=== PATIENT | female | born 1965 | race Caucasian/White ===

== ENCOUNTER 2025-01-21 02:03 | Emergency (ER) | payer OTHER ==
--- OUTSIDE RECORDS SUMMARY | 2025-01-21 02:07 | XMS REPORT | Continuity of Care Document ---
Author Name Unknown Address [address] [place] [address] [facility] [place] Address [address] [facility] [place] [address] Care Team Providers Care Supply Chain Buyer Name Role Phone [facility], [facility] Care Physician Unavailable EDWARD LANZA Attending Clinician Unavailab SANDY Steinberg Attending Clinician UnavailSANDY Brush Attending Clinician UnavailSandy Brush DO Attending Clinician [phone] VERENICE DANIELS Attending Clinician Unavailable Verenice Daniels MD Attending Clinician [phone] KIRIT RECINOS Attending Clinician Unavailable Kirit Recinos DO Attending Clinician [phone] Anand Jarrell MD Attending Clinician [phone] ANAND JARRELL Attending Clinician Unavailable VERENICE DANIELS Admitting Clinician Unavailable Payers Payer Name Policy Type Policy Number Effective Date Expirati on Date Source [facility] LORENZA SOTO COPAY FOCUS 9 [id number] 2024 00:00:00 [facility] [id number] 2024 00:00:00 [employer] [id number] 2023 00:00:00 STEPHANI BISWAS FROM [facility] [id number] 2022 00:00:00 Problems Condition Name Condition Details Condition Category Status Onset Date Resolution Date Last Treatment Date Treating Clinician Comments Source Skin cancer screening Skin cancer screening Disease Active 04-19 00:00: 00 Sandra Velásqueza l Allergies, Adverse Reactions, Alerts Allergy Name Allergy Type Status Severity Reaction(s) Onset Date Inactive Date Treating Clinician Comments Source NO KNOWN ALLERGIE S Drug Class Active [facility] Social History Social Habit Start Date Stop Date Quantity Comments Source Sexual orientation Qamar lentz Seyahairashalonda - External Tobacco use and exposure 2024-04-19 00:00:00 2024-04-19 00:00:00 Smokeless tobacco non-user Sandra Chasshalonda - External History of Social function 2024-04-19 00:00:00 2024-04-19 00:00:00 Sandra Delvalle - External Exposure to SARS-CoV-2 (event) 2022-12-23 00:00:00 2023-01-02 09:10:[address] [facility] Sex assigned at 1965 00:00:00 1965 00:00:00 Sandra Delvalle - External Smoking Status Start Date Stop Date Source Tobacco smoking consumption unknown [facility] Never smoked tobacco Sandra Laurentyahairashalonda - External Medications Ordered Medication Name Filled Medication Name Start Date Stop Date Current Medication? Ordering Clinician Indication Dosage Frequency Signature (SIG) Comments Components Source cefpodoxime 100 mg tablet 05-29 00:00: 00 06-06 04:59 :00 No [id number] 100mg Take 1 tablet by mouth in the morning and 1 tablet in the evening. Do all this for 7 days. [facility] Escitalopra m Oxalate 10 MG oral Tablet 04-19 00:00: 00 Yes [id number] 10mg QD Take 1 tablet (10 mg total) by mouth daily. Sandra Velásqueza l magnesium sulfate in D5W 1 gram/100 mL RTU IV Piggyback 1 g 03-16 18:45: 00 03-16 19:14 :00 No 1g 1 g, IV Piggyback, ONCE, 1 dose, On Tue03/16/24 at 1345, Administer over 60 Minutes, 100 mL [facility] NaCl 0.9% (NS) bolus infusion 1,000 mL 03-16 18:45: 00 03-16 19:14 :00 No 1000mL at 999 mL/hr, 1,000 mL, IV Infusion, ONCE, 1 dose, On Tue03/16/24 at 1345, STAT [facility] ketorolac (TORADOL) injection 30 mg 03-16 18:30: 00 03-16 18:19 :00 No 30mg 30 mg, Slow IV Push, ONCE, 1 dose, On Tue03/16/24 at 1330, KORY [facility] metoclopram tammy HCl (REGLAN) injection 10 mg 03-16 16:30: 00 03-16 16:26 :00 No 10mg 10 mg, Slow IV Push, ONCE, 1 dose, On Tue03/16/24 at 1130, KORY [facility] butalbital- acetaminoph en-caff 50-325-40 mg tablet 03-16 00:00: 00 Yes [id number] 1{tbl} Take 1 tablet by mouth every 4 (four) hours as needed for Pain (scale 4-6). [facility] metoclopram tammy HCl 10 mg tablet 03-16 00:00: 00 05-29 00:00 :00 No [id number] 10mg Take 1 tablet by mouth every 6 (six) hours. [facility] naproxen 500 mg tablet 03-16 00:00: 00 03-27 04:59 :00 No [id number] 500mg Take 1 tablet by mouth in the morning and 1 tablet in the evening. Take with meals. Do all this for 10 days. [facility] metoclopram tammy HCl (REGLAN) tablet 10 mg 10-29 13:30: 00 Yes 10mg 10 mg, Oral, AC, First dose on Tue10/29/23 at 0730, Until Discontinu ed, Routine [facility] diphenhydrA MINE (BENADRYL) tablet 25 mg 10-29 00:00: 00 10-29 00:01 :00 No 25mg 25 mg, Oral, ONCE, 1 dose, On Tue10/28/23 at 1800, KORY [facility] ondansetron (ZOFRAN-ODT ) disintegrat ing tablet 8 mg 10-28 22:30: 00 10-28 22:37 :00 No 8mg 8 mg, Oral, ONCE, 1 dose, On Tue10/28/23 at 1630, Routine [facility] ondansetron 4 mg disintegrat ing tablet 10-28 00:00: 00 05-29 00:00 :00 No [id number] 4mg Take 1 tablet by mouth every 8 (eight) hours as needed for Nausea and Vomiting (N/V). [facility] cephALEXin (KEFLEX) 500 mg capsule 10-28 00:00: 00 11-05 05:59 :00 No [id number] 500mg Take 1 capsule by mouth in the morning and 1 capsule at noon and 1 capsule in the evening. Do all this for 7 days. [facility] ketorolac (TORADOL) injection 30 mg 01-02 15:00: 00 01-02 14:35 :00 No 30mg 30 mg, Slow IV Push, ONCE, 1 dose, On Tue01/02/23 at 1000, Routine [facility] NaCl 0.9% (NS) bolus infusion 1,000 mL 01-02 15:00: 00 01-02 15:36 :00 No 1000mL at 999 mL/hr, 1,000 mL, IV Infusion, ONCE, 1 dose, On Tue01/02/23 at 1000, KORY [facility] diphenhydrA MINE (BENADRYL) injection 25 mg 01-02 14:30: 00 01-02 14:36 :00 No 25mg 25 mg, Slow IV Push, ONCE, 1 dose, On Tue01/02/23 at 0930, STAT [facility] metoclopram tammy HCl (REGLAN) injection 10 mg 01-02 14:30: 00 01-02 14:34 :00 No 10mg 10 mg, Slow IV Push, ONCE, 1 dose, On Tue01/02/23 at 0930, KORY [facility] ibuprofen (IBU) tablet 800 mg 12-07 05:45: 00 12-07 05:56 :00 No 800mg 800 mg, Oral, ONCE, 1 dose, On 12/06/22 at 2345, [facility] ondansetron (ZOFRAN-ODT ) disintegrat ing tablet 4 mg 12-07 05:45: 00 12-07 05:56 :00 No 4mg 4 mg, Oral, ONCE, 1 dose, On 12/06/22 at 2345, [facility] benzonatate 200 mg capsule 12-07 00:00: 00 05-29 00:00 :00 No [id number] 200mg Take 1 capsule by mouth 3 (three) times daily as needed for Cough. [facility] ibuprofen 800 mg tablet 12-07 00:00: 00 05-29 00:00 :00 No [id number] 800mg Take 1 tablet by mouth every 8 (eight) hours as needed for Pain (scale 4-6). [facility] Vital Signs Vital Name Observation Time Observation Value Comments S ource Systolic blood pressure 2024-05-29 12:59:00 118 mm[Hg] [facility] Diastolic blood pressure 2024-05-29 12:59:00 79 mm[Hg] [facility] Heart rate 2024-05-29 12:59:00 75 /min [facility] Body temperature 2024-05-29 12:59:[address] [facility] Respiratory rate 2024-05-29 12:59:00 16 /min [facility] Body height 2024-05-29 12:59:00 157.5 cm [facility] Body weight 2024-05-29 12:59:00 72.122 kg [facility] BMI 2024-05-29 12:59:00 29.08 kg/m2 [facility] Oxygen saturation in Arterial blood by Pulse oximetry 2024-05-29 12:59:00 93 /min [facility] Systolic blood pressure 2024-04-19 14:57:00 118 mm[Hg] Sandra Dohertyo ld - External Diastolic blood pressure 2024-04-19 14:57:00 64 mm[Hg] Sandra Dohertyo ld - External Heart rate 2024-04-19 14:57:00 86 /min Ehsan farmer Seybold - External Body temperature 2024-04-19 14:57:00 36.94 Jamee Sandra Laurentybold - External Respiratory rate 2024-04-19 14:57:00 18 /min Sandra Dohertyold - External Body height 2024-04-19 14:57:00 157.5 cm Melyssa davis Seybold - External Body weight 2024-04-19 14:57:00 73.143 kg Melyssa davis Seybold - External BMI 2024-04-19 14:57:00 29.49 kg/m2 Melyssa davis Seybshalonda - External Oxygen saturation in Arterial blood by Pulse oximetry 2024-04-19 14:57:00 97 /min Sandra Hinkle ld - External Systolic blood pressure 2024-03-16 19:02:00 123 mm[Hg] [facility] Diastolic blood pressure 2024-03-16 19:02:00 64 mm[Hg] [facility] Respiratory rate 2024-03-16 19:02:00 13 /min [facility] Heart rate 2024-03-16 17:00:00 81 /min [facility] Oxygen saturation in Arterial blood by Pulse oximetry 2024-03-16 17:00:00 93 /min [facility] Body temperature 2024-03-16 16:05:[address] [facility] Body height 2024-03-16 16:05:00 157.5 cm [facility] Body weight 2024-03-16 16:05:00 72.576 kg [facility] BMI 2024-03-16 16:05:00 29.26 kg/m2 [facility] Systolic blood pressure 2023-10-29 00:05:00 153 mm[Hg] [facility] Diastolic blood pressure 2023-10-29 00:05:00 74 mm[Hg] [facility] Heart rate 2023-10-29 00:05:00 80 /min [facility] Body temperature 2023-10-29 00:05:[address] [facility] Respiratory rate 2023-10-29 00:05:00 18 /min [facility] Oxygen saturation in Arterial blood by Pulse oximetry 2023-10-29 00:05:00 97 /min [facility] Body height 2023-10-28 21:37:00 157.5 cm [facility] Body weight 2023-10-28 21:37:00 69.854 kg [facility] BMI 2023-10-28 21:37:00 28.17 kg/m2 [facility] Systolic blood pressure 2023-01-02 15:36:36 122 mm[Hg] [facility] Diastolic blood pressure 2023-01-02 15:36:36 58 mm[Hg] [facility] Heart rate 2023-01-02 15:36:36 80 /min [facility] Oxygen saturation in Arterial blood by Pulse oximetry 2023-01-02 15:36:36 95 /min [facility] Respiratory rate 2023-01-02 15:00:00 16 /min [facility] Body temperature 2023-01-02 14:11:[address] [facility] Body height 2023-01-02 14:11:00 157.5 cm [facility] Body weight 2023-01-02 14:11:00 69.854 kg [facility] BMI 2023-01-02 14:11:00 28.17 kg/m2 [facility] Systolic blood pressure 2022-12-07 04:30:00 150 mm[Hg] [facility] Diastolic blood pressure 2022-12-07 04:30:00 82 mm[Hg] [facility] Heart rate 2022-12-07 04:30:00 107 /min [facility] Body temperature 2022-12-07 04:30:[address] [facility] Respiratory rate 2022-12-07 04:30:00 18 /min [facility] Body height 2022-12-07 04:30:00 157.5 cm [facility] Body weight 2022-12-07 04:30:00 69.854 kg [facility] BMI 2022-12-07 04:30:00 28.17 kg/m2 [facility] Oxygen saturation in Arterial blood by Pulse oximetry 2022-12-07 04:30:00 96 /min [facility] Procedures Procedure Date / Time Performed Performing Clinician Source URINALYSIS 2024-05-29 13:09:00 [facility] 2024-03-16 17:07:[address] [facility] URINALYSIS 2024-03-16 16:42:00 Verenice Daniels [facility] URINE DRUG (IMMUNOASSAY) - COMPREHENSIVE DRUG SCREEN W/O REFLEX 2024-03-16 16:42:[address] [facility] COMP. METABOLIC PANEL ([id number]) 2024-03-16 16:25:[address] [facility] CBC WITH DIFF 2024-03-16 16:25:00 Verenice Daniels [facility] URINALYSIS 2023-10-28 22:38:00 Kirit Recinos [facility] RAPID INFLUENZA A/B 2023-10-28 22:38:[address] [facility] COVID-19 (ID NOW RAPID TESTING) 2023-10-28 22:38:[address] [facility] ASSIGNMENT OF BENEFITS 2023-10-28 22:17:30 Docto r Unassigned, [facility] CONSENT/REFUSAL FOR DIAGNOSIS AND TREATMENT 2023-10-28 21:21:29 Doctor Unassigned, [facility] COMP. METABOLIC PANEL ([id number]) 2023-01-02 14:30:[address] [facility] CBC WITH DIFF 2023-01-02 14:30:00 [facility] RAPID INFLUENZA A/B 2023-01-02 14:30:[address] [facility] COVID-19 (ID NOW RAPID TESTING) 2023-01-02 14:30:[address] [facility] NOTICE OF PRIVACY PRACTICES 2023-01-02 14:09:30 Doctor Unassigned, [facility] RAPID INFLUENZA A/B 2022-12-07 05:56:[address] [facility] COVID-19 (ID NOW RAPID TESTING) 2022-12-07 05:56:[address] [facility] NOTICE OF PRIVACY PRACTICES 2022-12-07 04:13:32 Doctor Unassigned, [facility] NOTICE OF PRIVACY PRACTICES 2022-12-07 04:13:13 Doctor Unassigned, [facility] CONSENT/REFUSAL FOR DIAGNOSIS AND TREATMENT 2022-12-07 04:12:55 Doctor Unassigned, [facility] Encounters Start Date/Time End Date/Time Encounter Type Admission Type Attending [facility] Care Department Encounter ID Source 2024-10-10 15:30:00 2024-10-10 15:30:00 Outpatient EDWARD LANZA [id number] [facility] 2024-09-05 16:30:00 2024-09-05 16:30:00 Outpatient EDWARD LANZA [id number] [facility] 2024-05-29 08:05:00 2024-05-29 09:11:00 Emergency X SANDY JULES SANDRA [facility] ERT [id number] [facility] 2024-05-29 08:05:00 2024-05-29 09:11:00 Emergency Sandy Jules [facility] [id number] [facility] 2024-05-18 11:00:00 2024-05-18 11:00:00 Outpatient EDWARD LANZA [id number] [facility] 2024-04-19 10:00:00 2024-04-19 10:00:00 Outpatient EDWARD LANZA [id number] [facility] 2024-04-19 09:30:00 2024-04-19 09:30:00 Outpatient EDWARD LANZA [id number] [facility] 2024-04-02 10:30:00 2024-04-02 10:30:00 Outpatient EDWARD LANZA [id number] [facility] 2024-03-16 11:06:00 2024-03-16 14:17:00 Emergency X VERENICE DANIELS [facility] ERT [id number] [facility] 2024-03-16 11:06:00 2024-03-16 14:17:00 Emergency Verenice Daniels [facility] [id number] [id number] [facility] 2023-10-28 15:37:00 2023-10-28 18:08:00 Emergency KIRIT FELIX [facility] ERT [id number] [facility] 2023-10-28 15:37:00 2023-10-28 18:08:00 Emergency Kirit Recinos [facility] [id number] [id number] [facility] 2023-01-02 09:12:00 2023-01-02 10:46:00 Emergency SANDY FITCH [facility] ERT [id number] [facility] 2023-01-02 09:12:00 2023-01-02 10:46:00 Emergency Sandy Jules [facility] [id number] [id number] [facility] 2022-12-06 22:35:00 2022-12-07 01:14:00 Emergency Anand Jarrell [facility] [id number] [id number] [id number] [facility] 2022-12-06 22:35:00 2022-12-07 01:14:00 Emergency X ANAND JARRELL [facility] ERT [id number] [facility] 2022-10-05 09:57:21 2022-10-05 09:57:21 Outpatient SFA SFA [id number] Sergey Lindsay Results Test Description Test Time Test Comments Results Result Co mments Source [facility] [id number] 17:27:17EXAM: CT HEAD WO CONTRAST HISTORY: 58 years-old Female; Provided indication: Headache, new orworsening (Age >= 50y) . TECHNIQUE: Axial CT of the head was performed and reconstructed at 5 mmintervals. Coronal and sagittal reformatted images were generated. COMPARISON: None FINDINGS: The ventricles and cerebral sulci are normal in caliber and configuration.No midline shift or pathological extra-axial fluid collection is present.The basal cisterns are unremarkable. No acute intracranial hemorrhage or significant mass effect is visualized.No parenchymal attenuation abnormality is seen. The fragoso-white matterdifferentiation is preserved. The mastoid air cells and visualized paranasal air sinuses are clear. Thecalvarium and central skull base are unremarkable.[facility] WITH [id number] 17:03:22* Test Item Value Reference Range Interpretation Comme nts WBC (test code = 6690-2) 10.05 4.30-11.10 RBC (test code = 789-8) 5.25 3.93-5.25 HGB (test code = 718-7) 14.8 g/dL 11.6-15.0 HCT (test code = 4544-3) 44.5 % 35.7-45.2 MCV (test code = 787-2) 84.8 fL 80.6-95.5 MCH (test code = 785-6) 28.2 pg 25.9-32.8 MCHC (test code = 786-4) 33.3 g/dL 31.6-35.1 RDW-SD (test code = 43836-5) 37.2 fL 39.0-49.9 L RDW-CV (test code = 788-0) 12.2 % 12.0-15.5 PLT (test code = 777-3) 239 166-358 MPV (test code = 31019-7) 10.7 fL 9.5-12.9 NRBC/100 WBC (test code = 8434373035) 0.0 0.0-10.0 NRBC x10^3 (test code = 0600279254) See_Comment [Automated messa ge] The system which generated this result transmitted reference range: 10*3/?L. The reference range was not used to interpret this result as normal/abnormal. GRAN MAT (NEUT) % (test code = 770-8) 78.7 % IMM GRAN % (test code = 3742394535) 1.40 % LYMPH % (test code = 736-9) 14.7 % MONO % (test code = 5905-5) 4.1 % EOS % (test code = 713-8) 0.6 % BASO % (test code = 706-2) 0.5 % GRAN MAT x10^3(ANC) (test code = 1758037761) 7.91 10*3/uL 1.88-7.09 H IMM GRAN x10^3 (test code = 5411704719) 0.14 10*3/uL 0.00-0.06 H LYMPH x10^3 (test code = 731-0) 1.48 10*3/uL 1.32-3.29 MONO x10^3 (test code = 742-7) 0.41 10*3/uL 0.33-0.92 EOS x10^3 (test code = 711-2) 0.06 10*3/uL 0.03-0.39 BASO x10^3 (test code = 704-7) 0.05 10*3/uL 0.01-0.07 Lab Interpretation (test code = 29654-3) [facility][id number][facility] 14:51:33* Test Item Value Reference Range Interpretation Comme nts NA (test code = 6058366902) 140 mmol/L 135-145 K (test code = 7550073356) 3.9 mmol/L 3.5-5.0 CL (test code = 4428826655) 105 mmol/L 98-108 CO2 TOTAL (test code = 0027751866) 23 mmol/L 23-31 AGAP (test code = 3079534838) 12 2-16 BUN (test code = 4329913766) 11 mg/dL 7-23 GLUCOSE (test code = 2543670742) 170 mg/dL 70-110 H CREATININE (test code = 5797346770) 0.82 mg/dL 0.50-1.04 TOTAL BILI (test code = 2247548594) 0.8 mg/dL 0.1-1.1 CALCIUM (test code = 0036879048) 8.9 mg/dL 8.6-10.6 T PROTEIN (test code = 9415140332) 7.7 g/dL 6.3-8.2 ALBUMIN (test code = 5599944811) 4.2 g/dL 3.5-5.0 ALK PHOS (test code = 4701015776) 81 U/L 34-122 ALTv (test code = 1742-6) 37 U/L 5-35 H AST(SGOT) (test code = 0805642513) 24 U/L 13-40 eGFR (test code = 1635052207) 72.1 mL/min/1.73m2 MAGDALENA (test code = MAGDALENA) Association of Glomerular Filtration Rate (GFR) and Staging of Kidney Disease* + --+ --+ ------+| GFR (mL/min/1.73 m2) ?| With Kidney Damage ?| ?Without Kidney Damage+ --------+ --------+ +| ?>90 ?| ?Stage one ?| ? Normal ?+ ---+ ---+ -------+| ?60-89 ?| ?Stage two ?| ? Decreased GFR ? + --+ --+ ------+| ?30-59 ?| ?Stage three ?| ? Stage three ? + --+ --+ ------+| ?15-29 ?| ?Stage four ? | ? Stage four ?+ ---+ ---+ -------+| ?<15 (or dialysis) ? ?| ?Stage five ? | ? Stage five ?+ ---+ ---+ -------+ *Each stage assumes the associated GFR level has been in effect for at least three months. ?Stages 1 to 5, with or without kidney disease, indicate chronic kidney disease. Notes: Determination of stages one and two (with eGFR >59mL/min/1.73 m2) requires estimation of kidney damage for at least three months as defined by structural or functional abnormalities of the kidney, manifested by either:Pathological abnormalities or Markers of kidney damage (including abnormalities in the composition of the blood or urine or abnormalities in imaging tests). Lab Interpretation (test code = 74861-2) Abnormal [facility] WITH [id number] 14:38:57* Test Item Value Reference Range Interpretation Comme nts WBC (test code = 6690-2) 11.59 See_Comment H [Automated [employer]] The system which generated this result transmitted reference range: 4.30 - 11.10 10*3/?L. The reference range was not used to interpret this result as normal/abnormal. RBC (test code = 789-8) 4.81 See_Comment [Automated [employer]] The system which generated this result transmitted reference range: 3.93 - 5.25 10*6/?L. The reference range was not used to interpret this result as normal/abnormal. HGB (test code = 718-7) 14.1 g/dL 11.6-15.0 HCT (test code = 4544-3) 42.0 % 35.7-45.2 MCV (test code = 787-2) 87.3 fL 80.6-95.5 MCH (test code = 785-6) 29.3 pg 25.9-32.8 MCHC (test code = 786-4) 33.6 g/dL 31.6-35.1 RDW-SD (test code = 45888-4) 38.6 fL 39.0-49.9 L RDW-CV (test code = 788-0) 12.3 % 12.0-15.5 PLT (test code = 777-3) 188 See_Comment [Automated [employer]] The system which generated this result transmitted reference range: 166 - 358 10*3/?L. The reference range was not used to interpret this result as normal/abnormal. MPV (test code = 44278-1) 10.3 fL 9.5-12.9 NRBC/100 WBC (test code = 4090705839) 0.0 See_Comment [Automated me ssage] The system which generated this result transmitted reference range: 0.0 - 10.0 /100 WBCs. The reference range was not used to interpret this result as normal/abnormal. NRBC x10^3 (test code = 5161619124) See_Comment [Automated messa ge] The system which generated this result transmitted reference range: 10*3/?L. The reference range was not used to interpret this result as normal/abnormal. GRAN MAT (NEUT) % (test code = 770-8) 74.4 % IMM GRAN % (test code = 9185479109) 0.60 % LYMPH % (test code = 736-9) 16.0 % MONO % (test code = 5905-5) 6.8 % EOS % (test code = 713-8) 1.6 % BASO % (test code = 706-2) 0.6 % GRAN MAT x10^3(ANC) (test code = 2946169598) 8.63 10*3/uL 1.88-7.09 H IMM GRAN x10^3 (test code = 5479494533) 0.07 10*3/uL 0.00-0.06 H LYMPH x10^3 (test code = 731-0) 1.85 10*3/uL 1.32-3.29 MONO x10^3 (test code = 742-7) 0.79 10*3/uL 0.33-0.92 EOS x10^3 (test code = 711-2) 0.18 10*3/uL 0.03-0.39 BASO x10^3 (test code = 704-7) 0.07 10*3/uL 0.01-0.07 Lab Interpretation (test code = 08157-7) Abnormal [facility] Notes Date/Time Note Provider Source 2024-05-29 08:07:18 Patient here for a lower abdominal pain that radiates to her back. Patient states that she feels like she has a UTI. Started approximately 1 week ago. David Hinojosa RN [facility] - Health 2024-05-29 07:51:00 [facility] Emergency Department Note Patient Name: Gena Montgomery Date of : 1965 58 year old female Treatment Room: Room/bed info not found Primary Care Physician: Oneida Weir [facility] Patient Escorted by: Family [5] Mode of Arrival: Personal means [1] EMS Treatment Prior to ED Arrival: Travel and Exposure Screening: Symptoms Does patient have any of these symptoms?: (not recorded) Exposure Screening Has patient had contact with someone with a communicable disease in the last month?: (not recorded) Diseases exposed to:: (not recorded) Is Patient ?: (not recorded) Exposure Date: (not recorded) Chief Complaint: No chief complaint on file. History of Present Illness: The patient presents from home for eval for dysuria x one week. Nausea but no vomiting. No fevers. Also with right sided flank pain. No meds for sx. No h/o DM. She has had a previous gallbladder removal as well as a hysterectomy. Here for evaluation. Past Medical History/Immunizations: History reviewed. No pertinent past medical history. Tetanus received in last 5 years: Unknown Allergies: No Known Allergies Past Social History: Substance & Sexual Activity No substance use or sexual activity history on file. Past Surgical History: History reviewed. No pertinent surgical history. Review of Systems: Review of Systems Constitutional: Negative for chills and fever. Respiratory: Negative for cough and shortness of breath. Cardiovascular: Negative for chest pain. Gastrointestinal: Positive for nausea. Negative for vomiting. Genitourinary: Positive for dysuria and flank pain. Musculoskeletal: Negative for arthralgias, neck pain and neck stiffness. Skin: Negative for wound. Neurological: Negative for dizziness. Psychiatric/Behavioral: Negative for agitation. Endocrine: Negative for goiter. Physical Exam: ED Triage Vitals [05/29/24 0759] Weight 72.1 kg (159 lb) Actual or estimated Height 1.575 m (5' 2") BP 118/79 Pulse 75 Resp 16 Temp 36.9 ?C (98.4 ?F) Temp source Oral SpO2 93 % Measured on Physical Exam Vitals and nursing note reviewed. Constitutional: Appearance: Normal appearance. She is obese. HENT: Head: Normocephalic and atraumatic. Cardiovascular: Rate and Rhythm: Normal rate and regular rhythm. Pulses: Normal pulses. Pulmonary: Effort: Pulmonary effort is normal. No respiratory distress. Abdominal: General: There is no distension. Palpations: Abdomen is soft. There is no mass. Tenderness: There is no abdominal tenderness. There is no right CVA tenderness, left CVA tenderness or guarding. Hernia: No hernia is present. Musculoskeletal: General: Normal range of motion. Cervical back: Normal range of motion and neck supple. Skin: General: Skin is warm and dry. Neurological: General: No focal deficit present. Mental Status: She is alert and oriented to person, place, and time. Radiology: No orders to display Lab Results: Lab Results URINALYSIS - Abnormal Result Value Ref Range APPEARANCE Hazy (*) Clear COLOR Yellow Yellow PH 5.0 4.8 - 8.0 SP GRAVITY 1.018 1.003 - 1.030 GLU U QUAL Normal Normal BLOOD Negative Negative KETONES Negative Negative PROTEIN Negative Negative UROBILIN Normal Normal BILIRUBIN Negative Negative NITRITE Positive (*) Negative LEUK HANK 500/uL (*) Negative RBC/HPF 6 (*) 0 - 3 HPF WBC/HPF 136 (*) 0 - 5 HPF BACTERIA Many (*) Negative MUCOUS Slight (*) Negative LPF SQ EPITH 2 HPF EKG: If EKG completed, see Procedure Note. Orders and Treatments: Orders Placed This Encounter Procedures URINALYSIS Orders Placed This Encounter Medications cefpodoxime 100 mg tablet First Provider Eval: ED Events Date/Time Event User Comments 05/29/24 0757 Medical Screening Begins SANDY JULES DO -- 05/29/24 0757 First Provider Evaluation SANDY JULES DO -- ED COURSE Diagnosis/Impression as of 05/29/24 0855 Dysuria Acute cystitis without hematuria Procedures: Procedures MDM: Medical Decision Making The patient presents from home for evaluation for dysuria for the past 1 week. She also complains of some right-sided flank pain. She has nausea but no vomiting. No fevers or chills. No history of diabetes. No medications taken for her symptoms. She has had a previous hysterectomy as well as a gallbladder removal. Vital signs are stable in ER. Her abdomen is soft and nontender on examination. She has no CVA tenderness bilaterally. Differential diagnosis includes UTI, pyelonephritis. Will check a urinalysis. Anticipate discharge home later. 0855 - the patient is doing well here in the [facility]. UA shows infection. Will treat with antibiotics. She remains stable here in the [facility] and is ok for dc home with pcp f/u. Problems Addressed: Acute cystitis without hematuria: acute illness or injury Dysuria: acute illness or injury Amount and/or Complexity of Data Reviewed Labs: ordered. Decision-making details documented in ED Course. Risk Prescription drug management. Flowsheet Documentation: Scoring Tools: No data recorded Disposition/Condition: ED Disposition ED Disposition Disch - Home Condition Stable Comment -- Discharge Medications: Patient's Medications START taking these medications CEFPODOXIME 100 MG TABLET Take 1 tablet by mouth in the morning and 1 tablet in the evening. Do all this for 7 days. CONTINUE taking these medications which have NOT CHANGED MRMPFZKFWN-LEMRXDPNBHTZD-F AFF 50-325-40 MG TABLET Take 1 tablet by mouth every 4 (four) hours as needed for Pain (scale 4-6). START taking Modified Medications as Prescribed No medications on file STOP taking these medications BENZONATATE 200 MG CAPSULE Take 1 capsule by mouth 3 (three) times daily as needed for Cough. IBUPROFEN 800 MG TABLET Take 1 tablet by mouth every 8 (eight) hours as needed for Pain (scale 4-6). METOCLOPRAMIDE HCL 10 MG TABLET Take 1 tablet by mouth every 6 (six) hours. ONDANSETRON 4 MG DISINTEGRATING TABLET Take 1 tablet by mouth every 8 (eight) hours as needed for Nausea and Vomiting (N/V). Follow-up: Electronically signed by: Sandy Jules DO 05/29/24 0855 [facility] 2024-04-19 10:01:47 Chief Complaint Patient presents with New Patient Establish Care Had surgery on both knees. Right knee pain has bone on bone. Has been having headaches nightly. Cecilia Almonte LVN [facility] 2024-03-16 14:16:39 Patient given discharge instructions on complicated headache syndrome. Given prescriptions X 3 for esgic, reglan and naproxen. Pt advised to follow up with Dr. Patrick. Pt left ER ambulatory, no signs of distress. Luz Maria Hawley RN [facility] 2024-03-16 11:03:41 Patient arrived ambulatory with and daughter c/o of a severe headache that started this morning. The vomiting started this morning after the headache started. Patient and patient's family states she has chronic headaches and typically takes naproxen. Did not attempt any over the counter medication for the headache. Ruth Ann Mckeon RN [facility] 2023-10-28 18:07:34 Pt given printed and verbal discharge instructions regarding acute viral syndrome, encouraged hydration. 2 Prescriptions sent to pharmacy Discussed ibuprofen and to take with food to avoid GI distress. Discussed antibiotic therapy and to take until all completed unless adverse reaction occurs - if occurs, discontinue medication and follow up with pcp/seek medical attention Pt verbalized understanding of instructions, pt awake alert oriented, resp reg unlabored, skin w/d, color appropriate for race, moves all ext well,pt encouraged to follow up with pcp. Advised to seek medical attention for new/prolonged/worsening of symptoms, Symptoms improved. No adverse reaction to meds given in ER noted upon discharge. Awake, alert oriented, resp reg unlabored, skin w/d, pt leaving amb with steady gait, in no apparent distress. LATE CUTTER Jeanette Lee RN [facility] 2023-10-28 15:36:36 Patient reports n/v and headache that started at at noon. 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 VS stable. LATE CUTTER Suresh Ng RN [facility]
[2025-01-21] MEDS ORDERED: ONDANSETRON 4 MG/2 ML VIAL ONE (02:22)
[2025-01-21] MEDS ORDERED: DICYCLOMINE HCL 20 MG/2 ML AMP IM ONE (02:23)
[2025-01-21] MEDS ORDERED: DIPHENOX/ATROP SULF 1 TAB PO ONE (02:23)
[2025-01-21] MEDS ORDERED: NA CHLORIDE 0.9% 1,000 ML ONE ×2 (02:23→02:51)
[2025-01-21] MEDS ORDERED: KETOROLAC 30 MG/ML INJ ONE (02:51)
[2025-01-21 02:57] LABS: Absolute Lymphocytes (CBC) 0.6 K/uL (0.7-4.9); Absolute Monocytes 0.3 K/uL (0.1-1.3); Absolute Neutrophil 12.5 K/uL (1.8-8.0); Basophils % 0.2 % (0-1.3); Eosinophils % 0.1 % (0-4.4); Hematocrit 43.4 % (36.0-45.0); Hemoglobin 14.4 g/dL (12.0-15.0); Lymphocytes % 4.8 % (15.3-44.8); MCH 27.8 pg (27.0-35.0); MCHC 33.1 g/dL (32.0-36.0); MCV 83.8 fL (80-100); MPV 9.1 fL (7.6-11.3); Monocytes % 2.5 % (3.3-12.3); Neutrophils % 92.4 % (41.7-73.7); Nucleated Red Blood Cells % 0.1 % (0-0); Platelets 260 thou/uL (152-406); RBC Red Blood Cell Count 5.18 M/uL (3.86-4.86); Red Cell Distribution Width 13.3 % (12.1-15.2)
[2025-01-21 03:05] LABS: Albumin 3.9 g/dL (3.4-5.0); Anion Gap 10.7 mEq/L (5.0-15.0); Bilirubin Total 0.8 mg/dL (0.2-1.0); Globulin 4.1 g/dL (2.3-3.5); Potassium 3.7 mEq/L (3.5-5.1)
--- NOTE | 2025-01-21 03:52 | RAD REPORT ---
EXAM DESCRIPTION: CT ABDOMEN PELVIS WITHOUT IV CONTRAST 01/21/2025 3:30 AM CDT CLINICAL HISTORY: 59 years, Female, Abdominal pain. COMPARISON: None. PROCEDURE: Noncontrast images of the abdomen and pelvis were performed from the lung bases to the ischial tubero sities. In addition multiplanar reformats in the coronal and sagittal plane were obtained and reviewed. An individualized dose optimization technique, Automated Exposure Control, was utilized for the perfo rmed procedure. FINDINGS: The lack of IV contrast limits evaluation of solid organs, subtle lesions cannot be exclude d. Lung bases: The lung bases demonstrate to be clear. Liver: Grossly the unopacified liver demonstrates to be normal, no focal lesions are identified. Gallbladder: Surgical clips within the gallbladder fossa corresponding to previous cholecystectomy. N o significant biliary duct dilatation. Adrenal glands: Grossly the unopacified adrenal glands demonstrate to be normal. Pancreas: Grossly the unopacified pancreas demonstrate to be normal Spleen: The spleen demonstrate to be normal. Kidneys: Grossly the unopacified kidneys demonstrate to be within normal limits. There is cortical de formity within the midpole right kidney with cortical/parenchymal calcification measuring 5.7 mm on image 30 findings could correspond to previous percutaneous nephrostomy and/or prior access for litho tripsy. The left kidney demonstrated presence of a midpole calculus measuring 2.9 mm image 31. There is no ev idence for hydronephrosis and/or hydroureter in either kidney. GI: Grossly the unopacified stomach, small bowel and large bowel demonstrate to be within normal limi ts. No evidence for bowel dilatation and/or free air. The appendix is normal. The left-sided colon demonstrate to be decompressed with no gross abnormalities. : The urinary bladder demonstrate to be low in position in relation to the pubococcygeal line sugge sting the possibility of cystocele on sagittal image 70 and axial image 79. Genitalia: The uterus is absent. There are no adnexal masses. Abdominal aorta: The aorta demonstrate demonstrate to be within normal limits. Retroperitoneum: There is no retroperitoneal lymphadenopathy. There is no evidence for ascites and/or abnormal fluid collections. Bones: The bony structures demonstrate to be within normal limits. No evidence for compression deform ity and/or significant skeletal lesions. Soft tissues: The soft tissue and bony structures are within normal limits. IMPRESSION: Cortical deformity within the midpole right kidney with cortical/parenchymal calcification measuring 5.7 mm findings could correspond to previous percutaneous nephrostomy and/or prior access for lithotripsy. 2.9 mm nonobstructing left renal calculus. Findings suggesting the possibility of cystocele. Status post cholecystectomy. Electronically signed by: Francis Gonsalez MD 01/21/2025 03:42 AM CDT RP Due to temporary technical issues with the PACS/[employer] reporting system, reports are being sindy d by the in-house radiologist without review as a courtesy to ensure prompt reporting the interpreting radiologist is fully responsible for the content of the report. Transcribed Date/Time: 01/21/2025 3:52 AM
[2025-01-21 04:24] LABS: Renal Epithelial <5 /HPF (None Seen); Specific Gravity 1.011 (1.005-1.030); Sqamous Epithelial <5 /HPF (None Seen); Urine Bacteria None Seen /HPF (<20); Urine Bilirubin NEGATIVE (Negative); Urine Blood Negative (Negative); Urine Clarity Clear (Clear); Urine Color Light-Yellow (Yellow); Urine Culture Reflex Order NOT NEEDED; Urine Glucose NEGATIVE (Negative); Urine Ketones 1+ (Negative); Urine Micro Reflex YN NO BILL MICROSCOPIC; Urine Mucus Slight /HPF (None Seen); Urine Nitrite NEGATIVE (Negative); Urine Protein TRACE (Negative); Urine RBC <5 /HPF (None Seen); Urine Urobilinogen Normal (Normal); Urine WBC <5 /HPF (<5); Urine pH 7.5 (5.0-7.0)
[2025-01-21 04:28] LABS: Band Neutrophils 1 % (0-1); Blood Morphology Comment NOT SEEN (NOT SEEN); Differential Total Cells Count 100; Lymphocytes 8 % (15-42); Monocytes 2 % (0-10); Platelet Estimate ADEQ; Segmented Neutrophils 89 % (40-80)
[2025-01-21 04:42] LABS: Influenza A Ag Negative; Influenza B Ag Negative; SARS-CoV-2 Antigen Rapid Res Negative (Negative)
--- NOTE | 2025-01-21 05:03 | ER ---
Nurse's Notes [facility] Name: Gertrudis Guevara Age: 59 yrs Sex: Female : 1965 Arrival Date: 01/21/2025 Time: 02:03 Bed 7 Private MD: Diagnosis: Acute viral gastroenteritis, nausea vomiting and diarrhea, Presentation: 01/21 02:12 Chief complaint: Patient states: N/V/D and generalized ABD pain X1 day. Coronavirus lg3 screen: Client denies travel out of the [place] in the last 14 days. At this time, the client does not indicate any symptoms associated with coronavirus-19. Ebola Screen: No symptoms or risks identified at this time. Initial Sepsis Screen: Does the patient meet any 2 criteria? No. Patient's initial sepsis screen is negative. Does the patient have a suspected source of infection? No. Patient's initial sepsis screen is negative. Risk Assessment: Do you want to hurt yourself or someone else? Patient reports no desire to harm self or others. Onset of symptoms was January 20, 2025. 02:12 Method Of Arrival: Wheelchair lg3 02:12 Acuity: ONOFRE 3 lg3 Triage Assessment: 02:14 General: Appears in no apparent distress. uncomfortable, Behavior is calm, cooperative. lg3 General: Behavior is fussy. Pain: Complains of pain in abdomen Pain currently is 7 out of 10 on a pain scale. EENT: No deficits noted. No signs and/or symptoms were reported regarding the EENT system. Neuro: No deficits noted. Shipman Agitation-Sedation Scale (RASS): 0 - Alert and Calm Level of Consciousness is awake, alert, obeys commands, Oriented to person, place, time, situation. Cardiovascular: No deficits noted. Denies chest pain, shortness of breath, Capillary refill < 3 seconds Clubbing of nail beds is absent JVD is absent Patient's skin is warm and dry. Respiratory: No deficits noted. Airway is patent Respiratory effort is even, unlabored, Respiratory pattern is regular, symmetrical. GI: Abdomen is round non-distended, obese, Reports lower abdominal pain, upper abdominal pain, diarrhea, nausea, vomiting. : No signs and/or symptoms were reported regarding the genitourinary system. Derm: No deficits noted. No signs and/or symptoms reported regarding the dermatologic system. Skin is intact, is healthy with good turgor, Skin is dry, Skin is normal, Skin temperature is warm. Musculoskeletal: No deficits noted. No signs and/or symptoms reported regarding the musculoskeletal system. Circulation, motion, and sensation intact. Range of motion: intact in all extremities. Historical: - Allergies: 02:14 No Known Allergies; lg3 - Home Meds: 02:14 Ozempic subcutaneous [Active]; atorvastatin oral [Active]; lg3 - PMHx: 02:14 Diabetes mellitus; Hypercholesterolemia; lg3 - PSHx: 02:14 Total abdominal hysterectomy; knee; Cholecystectomy; lg3 - Immunization history:: Adult Immunizations up to date. - Infectious Disease History:: Denies. - Social history:: Smoking status: Patient denies any tobacco usage or history of. Patient/guardian denies using alcohol, street drugs. - Family history:: not pertinent. Screenin:17 [facility] ED Fall Risk Assessment (Adult) History of falling in the last 3 months, lg3 including since admission No falls in past 3 months (0 pts) Confusion or Disorientation No (0 pts) Intoxicated or Sedated No (0 pts) Impaired Gait No (0 pts) Mobility Assist Device Used No (0 pt) Altered Elimination No (0 pt) Score/Fall Risk Level 0 - 2 = Low Risk Oriented to surroundings, Maintained a safe environment, Educated pt \T\ family on fall prevention, incl call for assistance when getting out of bed, Assessed \T\ reinforced patient's understanding of fall precautions. Abuse screen: Denies threats or abuse. Denies injuries from another. Nutritional screening: No deficits noted. Tuberculosis screening: No symptoms or risk factors identified. Assessment: 02:12 General: see triage assessment. lg3 03:30 Reassessment: Patient appears in no apparent distress at this time. Patient and/or bm8 family updated on plan of care and expected duration. Pain level reassessed. Patient is alert, oriented x 3, equal unlabored respirations, skin warm/dry/pink. Patient states feeling better. Patient states symptoms have improved. Pain: Pain currently is 5 out of 10 on a pain scale. GI: Patient currently denies nausea, vomiting. 04:46 Reassessment: Patient appears in no apparent distress at this time. Patient and/or bm8 family updated on plan of care and expected duration. Pain level reassessed. Patient is alert, oriented x 3, equal unlabored respirations, skin warm/dry/pink. pt is resting with eyes closed breathing is even unlabored with symmetrical rise and fall of chest. family at bedside Patient states feeling better. Patient states symptoms have improved. Vital Signs: 02:12 BP 128 / 84; Pulse 101; Resp 17 S; Temp 98.8(O); Pulse Ox 98% on R/A; Weight 67.13 kg lg3 (R); Height 5 ft. 2 in. (R); Pain 7/10; 02:35 BP 114 / 77; Pulse 96; Resp 16; Pulse Ox 99% on R/A; dd2 03:30 BP 121 / 64; Pulse 88; Resp 17; Temp 98.8; Pulse Ox 96% ; Pain 5/10; bm8 04:46 BP 101 / 62; Pulse 87; Resp 17; Temp 98.8; Pulse Ox 95% ; Pain 3/10; bm8 02:12 Body Mass Index 27.07 (67.13 kg, 157.48 cm) lg3 02:12 Pain Scale: Adult lg3 03:30 Pain Scale: Adult bm8 04:46 Pain Scale: Adult bm8 [place] Coma Score: 02:36 Eye Response: spontaneous(4). Motor Response: obeys commands(6). Verbal Response: dd2 oriented(5). Total: 15. 03:30 Eye Response: spontaneous(4). Motor Response: obeys commands(6). Verbal Response: bm8 oriented(5). Total: 15. 04:46 Eye Response: spontaneous(4). Motor Response: obeys commands(6). Verbal Response: bm8 oriented(5). Total: 15. 04/01 00:23 Eye Response: spontaneous(4). Motor Response: obeys commands(6). Verbal Response: sp4 oriented(5). Total: 15. ED Course: 01/21 02:07 Patient arrived in ED. kmf 02:14 Triage completed. lg3 02:14 Arm band placed on right wrist. lg3 02:15 Inserted saline lock: 20 gauge in right antecubital area, using aseptic technique. dd2 Blood collected. Flushed with 10 mL NS. 02:17 Patient has correct armband on for positive identification. Placed in gown. Bed in low lg3 position. Call light in reach. Side rails up X 1. Client placed on continuous cardiac and pulse oximetry monitoring. NIBP monitoring applied. Door closed. Noise minimized. Warm blanket given. Pillow given. Family accompanied patient. 02:18 Mario Lewis MD is Attending Physician. sp4 02:25 Initial lab(s) drawn, by me, sent to lab. Patient maintains SpO2 saturation greater dd2 than 95% on room air. 02:25 No provider procedures requiring assistance completed. dd2 02:26 CBC with Diff Sent. dd2 02:26 CMP Sent. dd2 02:26 Lipase Sent. dd2 02:40 Rd Ovetron, RN is Primary Nurse. bm8 03:01 CT Abd/Pelvis - Without Contrast In Process Unspecified. EDMS 03:30 Urine collected: clean catch specimen, clear, COVID swab sent to lab. Flu and/or RSV bm8 swab sent to lab. 05:08 IV discontinued, intact, bleeding controlled, No redness/swelling at site. Pressure bm8 dressing applied. 05:08 Provided Education on: post er care. bm8 Administered Medications: 02:26 Drug: Ondansetron IVP 8 mg IVP once; over 2 minutes Route: IVP; Site: right antecubital;dd2 03:59 Follow up: Response: No adverse reaction bm8 02:26 Drug: Diphenoxylate-Atropine PO 2 tabs PO once Route: PO; dd2 03:59 Follow up: Response: No adverse reaction bm8 02:26 Drug: Dicyclomine IM 20 mg IM once Route: IM; Site: right deltoid; dd2 03:59 Follow up: Response: No adverse reaction bm8 02:26 Drug: NS 0.9% IV 1000 ml IV at 1000 ml once; to be given as a bolus over 60 minutes dd2 Route: IV; Rate: 1000 ml; Site: right antecubital; 03:59 Follow up: Response: No adverse reaction; IV Status: Completed infusion bm8 03:05 Drug: NS 0.9% IV 1000 ml IV at 1 bolus Per protocol; to be given as a bolus over 60 bm8 minutes Route: IV; Rate: 1 bolus; Site: right antecubital; 03:59 Follow up: Response: No adverse reaction; IV Status: Completed infusion bm8 03:05 Drug: Ketorolac IVP 30 mg IVP once Route: IVP; Site: right antecubital; bm8 03:58 Follow up: Response: No adverse reaction bm8 Medication: 03:30 VIS not applicable for this client. bm8 Outcome: 05:02 Discharge ordered by . sp4 05:08 Discharged to home ambulatory, with family, bm8 05:08 Condition: stable 05:08 Discharge instructions given to patient, family, Instructed on discharge instructions, follow up and referral plans. no drinking with medication, no driving heavy equipment, medication usage, safety practices, Demonstrated understanding of instructions, follow-up care, medications, Prescriptions given X 4, 05:08 Patient left the ED. bm8 Signatures: Dispatcher [employer] EDMS Sandy Graham RN RN lg3 Mario Lewis MD MD sp4 Sandra Kya [facility] [address] [place] RN RN bm8 ROGER DOAN RN RN dd2
--- NOTE | 2025-01-21 05:03 | EDPHYS ---
Physician Documentation [facility] Name: Gertrudis Guevara Age: 59 yrs Sex: Female : 1965 Arrival Date: 01/21/2025 Time: 02:03 Bed 7 Private MD: ED Physician Mario Lewis HPI: 01/21 02:18 This 59 yrs old Female presents to ER via Wheelchair with complaints of sp4 nausea, vomiting, diarrhea . 01/22 00:23 59-year-old female presents with complaint of nausea vomiting and diarrhea, patient sp4 reported profuse vomiting at home.. Historical: - Allergies: 01/21 02:14 No Known Allergies; lg3 - Home Meds: 02:14 Ozempic subcutaneous [Active]; atorvastatin oral [Active]; lg3 - PMHx: 02:14 Diabetes mellitus; Hypercholesterolemia; lg3 - PSHx: 02:14 Total abdominal hysterectomy; knee; Cholecystectomy; lg3 - Immunization history:: Adult Immunizations up to date. - Infectious Disease History:: Denies. - Social history:: Smoking status: Patient denies any tobacco usage or history of. Patient/guardian denies using alcohol, street drugs. - Family history:: not pertinent. ROS: 01/22 00:23 Constitutional: Negative for fever, chills, and weight loss, positive nausea, positive sp4 vomiting, positive diarrhea All other systems are negative, Exam: 00:23 Constitutional: This is a well developed, well nourished patient who is awake, alert, sp4 and in no acute distress. Head/Face: Normocephalic, atraumatic. Eyes: Pupils equal round and reactive to light, extra-ocular motions intact. Lids and lashes normal. Conjunctiva and sclera are not injected. Cornea within normal limits. Periorbital areas with no swelling, redness, or edema. ENT: Nares patent. No nasal discharge, no septal abnormalities noted. Tympanic membranes are normal and external auditory canals are clear. Oropharynx with no redness, swelling, or masses, exudates, or evidence of obstruction, uvula midline. Mucous membranes moist. Neck: Trachea midline, no thyromegaly or masses palpated, and no cervical lymphadenopathy. Supple, full range of motion without nuchal rigidity, or vertebral point tenderness. Chest/axilla: Normal chest wall appearance and motion. Nontender with no deformity. No lesions are appreciated. Cardiovascular: Regular rate and rhythm with a normal S1 and S2. No gallops, murmurs, or rubs. Normal PMI, no JVD. No pulse deficits. Respiratory: Lungs have equal breath sounds bilaterally, clear to auscultation and percussion. No rales, rhonchi or wheezes noted. No increased work of breathing, no retractions or nasal flaring. Abdomen/GI: Soft, with normal bowel sounds. No distension or tympany. No guarding or rebound. No evidence of tenderness throughout. Back: No spinal tenderness. No costovertebral tenderness. Skin: Warm, dry with normal turgor. Normal color with no rashes, no lesions, and no evidence of cellulitis. MS/ Extremity: Pulses equal, no cyanosis. Neurovascular intact. Full, normal range of motion. Neuro: Awake and alert, GCS 15, oriented to person, place, time, and situation. Cranial nerves II-XII grossly intact. Motor strength 5/5 in all extremities. Sensory grossly intact. Psych: Awake, alert, with orientation to person, place and time. Behavior, mood, and affect are within normal limits Vital Signs: 01/21 02:12 BP 128 / 84; Pulse 101; Resp 17 S; Temp 98.8(O); Pulse Ox 98% on R/A; Weight 67.13 kg lg3 (R); Height 5 ft. 2 in. (R); Pain 7/10; 02:35 BP 114 / 77; Pulse 96; Resp 16; Pulse Ox 99% on R/A; dd2 03:30 BP 121 / 64; Pulse 88; Resp 17; Temp 98.8; Pulse Ox 96% ; Pain 5/10; bm8 04:46 BP 101 / 62; Pulse 87; Resp 17; Temp 98.8; Pulse Ox 95% ; Pain 3/10; bm8 02:12 Body Mass Index 27.07 (67.13 kg, 157.48 cm) lg3 02:12 Pain Scale: Adult lg3 03:30 Pain Scale: Adult bm8 04:46 Pain Scale: Adult bm8 Jigar Coma Score: 02:36 Eye Response: spontaneous(4). Motor Response: obeys commands(6). Verbal Response: dd2 oriented(5). Total: 15. 03:30 Eye Response: spontaneous(4). Motor Response: obeys commands(6). Verbal Response: bm8 oriented(5). Total: 15. 04:46 Eye Response: spontaneous(4). Motor Response: obeys commands(6). Verbal Response: bm8 oriented(5). Total: 15. 01/22 00:23 Eye Response: spontaneous(4). Motor Response: obeys commands(6). Verbal Response: sp4 oriented(5). Total: 15. MDM: 01/21 02:25 Medical Screening Exam initiated sp4 01/22 00:23 Differential diagnosis: Nonspecific abd pain, gastritis, cholecystitis, viral sp4 gastroenteritis, gastroenteritis. Data reviewed: vital signs, nurses notes, radiologic studies, CT scan. ED course: EXAM DESCRIPTION: CTABDOMEN PELVIS WITHOUT IV CONTRAST 01/21/2025 3:30 AM CDT CLINICAL HISTORY: 59 years, Female, Abdominal pain. COMPARISON: None. PROCEDURE: Noncontrast images of the abdomen and pelvis were performed from the lung bases to the ischial tuberosities. In addition multiplanar reformats in the coronal and sagittal plane were obtained and reviewed. An individualized dose optimization technique, Automated Exposure Control, was utilized for the performed procedure. FINDINGS: The lack of IV contrast limits evaluation of solid organs, subtle lesions cannot be excluded. Lung bases: The lung bases demonstrate to be clear. Liver: Grossly the unopacified liver demonstrates to be normal, no focal lesions are identified. Gallbladder: Surgical clips within the gallbladder fossa corresponding to previous cholecystectomy. No significant biliary duct dilatation. Adrenal glands: Grossly the unopacified adrenal glands demonstrate to be normal. Pancreas: Grossly the unopacified pancreas demonstrate to be normal Spleen: The spleen demonstrate to be normal. Kidneys: Grossly the unopacified kidneys demonstrate to be within normal limits. There is cortical deformity within the midpole right kidney with cortical/parenchymal calcification measuring 5.7 mm on image 30 findings could correspond to previous percutaneous nephrostomy and/or prior access for lithotripsy. The left kidney demonstrated presence of a midpole calculus measuring 2.9 mm image 31. There is no evidence for hydronephrosis and/or hydroureter in either kidney. GI: Grossly the unopacified stomach, small bowel and large bowel demonstrate to be within normal limits. No evidence for bowel dilatation and/or free air. The appendix is normal. The left-sided colon demonstrate to be decompressed with no gross abnormalities. : The urinary bladder demonstrate to be low in position in relation to the pubococcygeal line suggesting the possibility of cystocele on sagittal image 70 and axial image 79. Genitalia: The uterus is absent. There are no adnexal masses. Abdominal aorta: The aorta demonstrate demonstrate to be within normal limits. Retroperitoneum:There is no retroperitoneal lymphadenopathy. There is no evidence for ascites and/or abnormal fluid collections. Bones: The bony structures demonstrate to be within normal limits. No evidence for compression deformity and/or significant skeletal lesions. Soft tissues: The soft tissue and bony structures are within normal limits. IMPRESSION: Cortical deformity within the midpole right kidney with cortical/parenchymal calcification measuring 5.7 mm findings could correspond to previous percutaneous nephrostomy and/or prior access for lithotripsy. 2.9 mm non obstructing left renal calculus. Findings suggesting the possibility of cystocele. Status post cholecystectomy. Electronically signed by: Francis Gonsalez MD 01/21/2025 03:42 AM . 00:25 Consideration of Admission/Observation Escalation of care including sp4 admission/observation considered. ED course: Stable for discharge home.. 01/21 02:19 Order name: CBC with Diff; Complete Time: 04:48 sp4 01/21 02:19 Order name: CMP; Complete Time: 03:14 sp4 01/21 02:19 Order name: Lipase; Complete Time: 03:14 sp4 01/21 02:32 Order name: COVID-19 Ag + Flu A+B Ag; Complete Time: 04:48 sp4 01/21 02:32 Order name: Urinalysis W/Microscopic; Complete Time: 04:48 sp4 01/21 03:05 Order name: Manual Differential; Complete Time: 04:48 EDMS 01/21 02:32 Order name: CT Abd/Pelvis - Without Contrast sp4 01/21 02:19 Order name: IV Saline Lock; Complete Time: 02:26 sp4 01/21 02:19 Order name: Labs collected and sent; Complete Time: 02:26 sp4 01/21 02:20 Order name: PO challenge; Complete Time: 02:41 sp4 Administered Medications: 01/21 02:26 Drug: Ondansetron IVP 8 mg IVP once; over 2 minutes Route: IVP; Site: right antecubital;dd2 03:59 Follow up: Response: No adverse reaction bm8 02:26 Drug: Diphenoxylate-Atropine PO 2 tabs PO once Route: PO; dd2 03:59 Follow up: Response: No adverse reaction bm8 02:26 Drug: Dicyclomine IM 20 mg IM once Route: IM; Site: right deltoid; dd2 03:59 Follow up: Response: No adverse reaction bm8 02:26 Drug: NS 0.9% IV 1000 ml IV at 1000 ml once; to be given as a bolus over 60 minutes dd2 Route: IV; Rate: 1000 ml; Site: right antecubital; 03:59 Follow up: Response: No adverse reaction; IV Status: Completed infusion bm8 03:05 Drug: NS 0.9% IV 1000 ml IV at 1 bolus Per protocol; to be given as a bolus over 60 bm8 minutes Route: IV; Rate: 1 bolus; Site: right antecubital; 03:59 Follow up: Response: No adverse reaction; IV Status: Completed infusion bm8 03:05 Drug: Ketorolac IVP 30 mg IVP once Route: IVP; Site: right antecubital; bm8 03:58 Follow up: Response: No adverse reaction bm8 Disposition Summary: 01/21/25 05:02 Discharge Ordered Notes: Location: Home sp4 Problem: new sp4 Symptoms: have improved sp4 Condition: Stable sp4 Diagnosis - Acute viral gastroenteritis, nausea vomiting and diarrhea, sp4 Followup: sp4 - With: Private Physician - When: 7 - 10 days - Reason: Recheck today's complaints Discharge Instructions: - Viral Gastroenteritis, Adult, [id number] sp4 - Discharge Summary Sheet dd2 Forms: - Work release form sp4 - Patient Portal Instructions sp4 Prescriptions: - Ibuprofen 800 mg Oral Tablet - take 1 tablet ORAL route every 8 hours As needed take with food; 30 tablet; sp4 Refills: 0, Product Selection Permitted - Lomotil 2.5-0.025 mg Oral tablet - take 1 tablet ORAL route every 6 hours As needed PRN diarrhea; 30 tablet; sp4 Refills: 0, Product Selection Permitted - dicyclomine 20 mg Oral tablet - take 1 tablet ORAL route every 8 hours PRN abominal cramps; 30 tablet; Refills: sp4 0, Product Selection Permitted - ondansetron 8 mg Oral Tablet,disintegrating - take 1 tablet ORAL route every 8 hours PRN nausea; 30 tablet; Refills: 0, sp4 Product Selection Permitted Signatures: Dispatcher [employer] EDMS Sandy Graham RN RN lg3 Mario Lewis MD MD sp4 Rd Overton RN RN bm8 ROGER DOAN RN RN dd2 Corrections: (The following items were deleted from the chart) 02: 02:19 CBC+H.LAB.BRZ ordered. EDMS EDMS 02: 02:19 COMPREHENSIVE METABOLIC PANEL+C.LAB.BRZ ordered. EDMS EDMS 02: 02:19 LIPASE+C.LAB.BRZ ordered. EDMS EDMS
[2025-01-21 05:30] VITALS: TEMP 98.8
[2025-01-21 05:34] VITALS: BP 101/62; O2SAT 95
== END 2025-01-21 05:08 | disposition home or self-care (01) ==
LOC: ER 02:03
DX: A08.4 Viral intestinal infection, unspecified (principal); E11.9 Type 2 diabetes mellitus without complications; Z11.52 Encounter for screening for COVID-19
CPT/HCPCS: 96361; 85025; 81001; 36415; 83690; 80053; 74176; 96375; 96372; 96374; 99284; 87428; J0500; J2405; J7030 ×2

== ENCOUNTER 2025-03-18 21:17 | Emergency (ER) | payer OTHER ==
--- OUTSIDE RECORDS SUMMARY | 2025-03-18 21:22 | XMS REPORT | Continuity of Care Document ---
Author Name Unknown Address [address] [facility] [address] [place] [address] [facility] [place] Address [address] [facility] [address] [place] [address] Care Team Providers Care Breed To Wean Production Technician Name Role Phone [facility] Care Physician Unavailable EDWARD LANZA Attending Clinician UnavailSANDY Brush Attending Clinician UnavailSANDY Brush Attending Clinician UnavailSandy Brush DO Attending Clinician [phone] VERENICE DANIELS Attending Clinician Unavailable Verenice Daniels MD Attending Clinician [phone] KIRIT RECINOS Attending Clinician Unavailable Kirit Recinos DO Attending Clinician [phone] Anand Jarrell MD Attending Clinician [phone] ANAND JARRELL Attending Clinician Unavailable VERENICE DANIELS Admitting Clinician Unavailable Payers Payer Name Policy Type Policy Number Effective Date Expirati on Date Source [facility] S[facility] COPAY FOCUS 9 [id number] 2024 00:00:00 [facility] [id number] 2024 00:00:00 [employer] [id number] 2023 00:00:00 STEPHANI BISWAS FROM [facility] [id number] 2022 00:00:00 Problems Condition Name Condition Details Condition Category Status Onset Date Resolution Date Last Treatment Date Treating Clinician Comments Source Skin cancer screening Skin cancer screening Disease Active 04-19 00:00: 00 Sandra Velásqueza l Allergies, Adverse Reactions, Alerts Allergy Name Allergy Type Status Severity Reaction(s) Onset Date Inactive Date Treating Clinician Comments Source NO KNOWN ALLERGIE S Drug Class Active [facility] Social History Social Habit Start Date Stop Date Quantity Comments Source Sexual orientation Qamar Delvalle - External Tobacco use and exposure 2024-04-19 00:00:00 2024-04-19 00:00:00 Smokeless tobacco non-user Sandra Laurentyahairashalonda - External History of Social function 2024-04-19 00:00:00 2024-04-19 00:00:00 Sandra Adelia - External Exposure to SARS-CoV-2 (event) 2022-12-23 00:00:00 2023-01-02 09:10:00 Not sure [facility] Sex assigned at 1965 00:00:00 1965 00:00:00 Sandra Seyahairashalonda - External Smoking Status Start Date Stop Date Source Tobacco smoking consumption unknown [facility] Never smoked tobacco Sandra Delvalle - External Medications Ordered Medication Name Filled Medication Name Start Date Stop Date Current Medication? Ordering Clinician Indication Dosage Frequency Signature (SIG) Comments Components Source cefpodoxime 100 mg tablet 05-29 00:00: 00 06-06 04:59 :00 No [id number] 100mg Take 1 tablet by mouth in the morning and 1 tablet in the evening. Do all this for 7 days. [facility] Escitalopra m Oxalate 10 MG oral Tablet 04-19 00:00: 00 Yes [id number] 10mg QD Take 1 tablet (10 mg total) by mouth daily. Sandra Velásqueza l magnesium sulfate in D5W 1 gram/100 mL RTU IV Piggyback 1 g 03-16 18:45: 00 03-16 19:14 :00 No 1g 1 g, IV Piggyback, ONCE, 1 dose, On Tue03/16/24 at 1345, Administer over 60 Minutes, 100 mL [facility] NaCl 0.9% (NS) bolus infusion 1,000 mL 03-16 18:45: 00 03-16 19:14 :00 No 1000mL at 999 mL/hr, 1,000 mL, IV Infusion, ONCE, 1 dose, On Tue03/16/24 at 1345, STAT [facility] ketorolac (TORADOL) injection 30 mg 03-16 18:30: 00 03-16 18:19 :00 No 30mg 30 mg, Slow IV Push, ONCE, 1 dose, On Tue03/16/24 at 1330, [facility] metoclopram tammy HCl (REGLAN) injection 10 mg 03-16 16:30: 00 03-16 16:26 :00 No 10mg 10 mg, Slow IV Push, ONCE, 1 dose, On Tue03/16/24 at 1130, [facility] butalbital- acetaminoph en-caff 50-325-40 mg tablet 03-16 00:00: 00 Yes [id number] 1{tbl} Take 1 tablet by mouth every 4 (four) hours as needed for Pain (scale 4-6). [facility] metoclopram tammy HCl 10 mg tablet 03-16 00:00: 00 05-29 00:00 :00 No [id number] 10mg Take 1 tablet by mouth every 6 (six) hours. [facility] naproxen 500 mg tablet 03-16 00:00: 00 03-27 04:59 :00 No [id number] 500mg Take 1 tablet by mouth in the morning and 1 tablet in the evening. Take with meals. Do all this for 10 days. [facility] metoclopram tammy HCl (REGLAN) tablet 10 mg 10-29 13:30: 00 Yes 10mg 10 mg, Oral, AC, First dose on Tue10/29/23 at 0730, Until Discontinu ed, Routine [facility] diphenhydrA MINE (BENADRYL) tablet 25 mg 10-29 00:00: 00 10-29 00:01 :00 No 25mg 25 mg, Oral, ONCE, 1 dose, On Tue10/28/23 at 1800, [facility] ondansetron (ZOFRAN-ODT ) disintegrat ing tablet 8 mg 10-28 22:30: 00 10-28 22:37 :00 No 8mg 8 mg, Oral, ONCE, 1 dose, On Tue10/28/23 at 1630, Routine [facility] ondansetron 4 mg disintegrat ing tablet 10-28 00:00: 00 05-29 00:00 :00 No [id number] 4mg Take 1 tablet by mouth every 8 (eight) hours as needed for Nausea and Vomiting (N/V). [facility] cephALEXin (KEFLEX) 500 mg capsule 10-28 00:00: 00 11-05 05:59 :00 No [id number] 500mg Take 1 capsule by mouth in the morning and 1 capsule at noon and 1 capsule in the evening. Do all this for 7 days. [facility] ketorolac (TORADOL) injection 30 mg 01-02 15:00: 00 01-02 14:35 :00 No 30mg 30 mg, Slow IV Push, ONCE, 1 dose, On Tue01/02/23 at 1000, Routine [facility] NaCl 0.9% (NS) bolus infusion 1,000 mL 01-02 15:00: 00 01-02 15:36 :00 No 1000mL at 999 mL/hr, 1,000 mL, IV Infusion, ONCE, 1 dose, On Tue01/02/23 at 1000, [facility] diphenhydrA MINE (BENADRYL) injection 25 mg 01-02 14:30: 00 01-02 14:36 :00 No 25mg 25 mg, Slow IV Push, ONCE, 1 dose, On Tue01/02/23 at 0930, STAT [facility] metoclopram tammy HCl (REGLAN) injection 10 mg 01-02 14:30: 00 01-02 14:34 :00 No 10mg 10 mg, Slow IV Push, ONCE, 1 dose, On 01/02/23 at 0930, [facility] ibuprofen (IBU) tablet 800 mg 12-07 05:45: 00 12-07 05:56 :00 No 800mg 800 mg, Oral, ONCE, 1 dose, On 12/06/22 at 2345, [facility] ondansetron (ZOFRAN-ODT ) disintegrat ing tablet 4 mg 12-07 05:45: 00 12-07 05:56 :00 No 4mg 4 mg, Oral, ONCE, 1 dose, On 12/06/22 at 2345, [facility] benzonatate 200 mg capsule 12-07 00:00: 00 05-29 00:00 :00 No [id number] 200mg Take 1 capsule by mouth 3 (three) times daily as needed for Cough. [facility] ibuprofen 800 mg tablet 12-07 00:00: 00 05-29 00:00 :00 No [id number] 800mg Take 1 tablet by mouth every 8 (eight) hours as needed for Pain (scale 4-6). [facility] Vital Signs Vital Name Observation Time Observation Value Comments S ource Systolic blood pressure 2024-05-29 12:59:00 118 mm[Hg] [facility] Diastolic blood pressure 2024-05-29 12:59:00 79 mm[Hg] [facility] Heart rate 2024-05-29 12:59:00 75 /min [facility] Body temperature 2024-05-29 12:59:00 36.89 Jamee [facility] Respiratory rate 2024-05-29 12:59:00 16 /min [facility] Body height 2024-05-29 12:59:00 157.5 cm [facility] Body weight 2024-05-29 12:59:00 72.122 kg [facility] BMI 2024-05-29 12:59:00 29.08 kg/m2 [facility] Oxygen saturation in Arterial blood by Pulse oximetry 2024-05-29 12:59:00 93 /min [facility] Systolic blood pressure 2024-04-19 14:57:00 118 mm[Hg] Sandra Dohertyo ld - External Diastolic blood pressure 2024-04-19 14:57:00 64 mm[Hg] Sandra Dohertyo ld - External Heart rate 2024-04-19 14:57:00 86 /min Ehsan farmer Seybshalonda - External Body temperature 2024-04-19 14:57:00 36.94 Jamee Sandra Dohertyold - External Respiratory rate 2024-04-19 14:57:00 18 /min Sandra Laurentybold - External Body height 2024-04-19 14:57:00 157.5 cm Melyssa davis Seybshalonda - External Body weight 2024-04-19 14:57:00 73.143 kg Melyssa davis Seybold - External BMI 2024-04-19 14:57:00 29.49 kg/m2 Melyssa davis Seybshalonda - External Oxygen saturation in Arterial blood by Pulse oximetry 2024-04-19 14:57:00 97 /min Sandra Hinkle ld - External Systolic blood pressure 2024-03-16 19:02:00 123 mm[Hg] [facility] Diastolic blood pressure 2024-03-16 19:02:00 64 mm[Hg] [facility] Respiratory rate 2024-03-16 19:02:00 13 /min [facility] Heart rate 2024-03-16 17:00:00 81 /min [facility] Oxygen saturation in Arterial blood by Pulse oximetry 2024-03-16 17:00:00 93 /min [facility] Body temperature 2024-03-16 16:05:00 36.5 Jamee [facility] Body height 2024-03-16 16:05:00 157.5 cm [facility] Body weight 2024-03-16 16:05:00 72.576 kg [facility] BMI 2024-03-16 16:05:00 29.26 kg/m2 [facility] Systolic blood pressure 2023-10-29 00:05:00 153 mm[Hg] [facility] Diastolic blood pressure 2023-10-29 00:05:00 74 mm[Hg] [facility] Heart rate 2023-10-29 00:05:00 80 /min Unive [facility] Body temperature 2023-10-29 00:05:00 36.78 Jamee [facility] Respiratory rate 2023-10-29 00:05:00 18 /min [facility] Oxygen saturation in Arterial blood by Pulse oximetry 2023-10-29 00:05:00 97 /min [facility] Body height 2023-10-28 21:37:00 157.5 cm [facility] Body weight 2023-10-28 21:37:00 69.854 kg [facility] BMI 2023-10-28 21:37:00 28.17 kg/m2 [facility] Systolic blood pressure 2023-01-02 15:36:36 122 mm[Hg] [facility] Diastolic blood pressure 2023-01-02 15:36:36 58 mm[Hg] [facility] Heart rate 2023-01-02 15:36:36 80 /min Unive [facility] Oxygen saturation in Arterial blood by Pulse oximetry 2023-01-02 15:36:36 95 /min [facility] Respiratory rate 2023-01-02 15:00:00 16 /min [facility] Body temperature 2023-01-02 14:11:00 36.61 Jamee [facility] Body height 2023-01-02 14:11:00 157.5 cm [facility] Body weight 2023-01-02 14:11:00 69.854 kg [facility] BMI 2023-01-02 14:11:00 28.17 kg/m2 [facility] Systolic blood pressure 2022-12-07 04:30:00 150 mm[Hg] [facility] Diastolic blood pressure 2022-12-07 04:30:00 82 mm[Hg] [facility] Heart rate 2022-12-07 04:30:00 107 /min Un[facility] Body temperature 2022-12-07 04:30:00 38 Jamee [facility] Respiratory rate 2022-12-07 04:30:00 18 /min [facility] Body height 2022-12-07 04:30:00 157.5 cm [facility] Body weight 2022-12-07 04:30:00 69.854 kg [facility] BMI 2022-12-07 04:30:00 28.17 kg/m2 [facility] Oxygen saturation in Arterial blood by Pulse oximetry 2022-12-07 04:30:00 96 /min [facility] Procedures Procedure Date / Time Performed Performing Clinician Source URINALYSIS 2024-05-29 13:09:00 [facility] 2024-03-16 17:07:52 Davidson Daniels [facility] URINALYSIS 2024-03-16 16:42:00 Verenice Daniels [facility] URINE DRUG (IMMUNOASSAY) - COMPREHENSIVE DRUG SCREEN W/O REFLEX 2024-03-16 16:42:00 Verenice Daniels [facility] COMP. METABOLIC PANEL ([id number]) 2024-03-16 16:25[facility] 2024-03-16 16:25:00 Verenice Daniels [facility] URINALYSIS 2023-10-28 22:38:00 [facility] RAPID INFLUENZA A/B 2023-10-28 22:38:00 Monica Recinos [facility] COVID-19 (ID NOW RAPID TESTING) 2023-10-28 22:38:00 Kirit Recinos [facility] ASSIGNMENT OF BENEFITS 2023-10-28 22:17:30 Docto r Unassigned, [place] [facility] CONSENT/REFUSAL FOR DIAGNOSIS AND TREATMENT 2023-10-28 21:21:29 Doctor Unassigned, [place] [facility] COMP. METABOLIC PANEL ([id number]) 2023-01-02 14:30:00 Sandy Jules [facility] CBC WITH DIFF 2023-01-02 14:30:00 [facility]/B 2023-01-02 14:30:00 Nuria Jules ra [facility] COVID-19 (ID NOW RAPID TESTING) 2023-01-02 14:30:00 Sandy Jules [facility] NOTICE OF PRIVACY PRACTICES 2023-01-02 14:09:30 Doctor Unassigned, [place] [facility] RAPID INFLUENZA A/B 2022-12-07 05:56:00 Anand Jarrell [facility] COVID-19 (ID NOW RAPID TESTING) 2022-12-07 05:56:00 Anand Jarrell [facility] NOTICE OF PRIVACY PRACTICES 2022-12-07 04:13:32 Doctor Unassigned, [place] [facility] NOTICE OF PRIVACY PRACTICES 2022-12-07 04:13:13 Doctor Unassigned, [place] [facility] CONSENT/REFUSAL FOR DIAGNOSIS AND TREATMENT 2022-12-07 04:12:55 Doctor Unassigned, [place] [facility] Encounters Start Date/Time End Date/Time Encounter Type Admission Type Attending [facility] Care Department Encounter ID Source 2024-10-10 15:30:00 2024-10-10 15:30:00 Outpatient EDWARD LAZNA [id number] [facility] 2024-09-05 16:30:00 2024-09-05 16:30:00 Outpatient ED[facility] LANZA [id number] [facility] 2024-05-29 08:05:00 2024-05-29 09:11:00 Emergency X SANDY JULES SANDRA [facility] ERT [id number] [facility] 2024-05-29 08:05:00 2024-05-29 09:11:00 Emergency Sandy Jules [facility] [id number] [id number] [facility] 2024-05-18 11:00:00 2024-05-18 11:00:00 Outpatient EDWARD LANZA [id number] [facility] 2024-04-19 10:00:00 2024-04-19 10:00:00 Outpatient EDWARD LANZA [id number] Sandra [facility] 2024-04-19 09:30:00 2024-04-19 09:30:00 Outpatient EDWARD LANZA [id number] Sandra [facility] 2024-04-02 10:30:00 2024-04-02 10:30:00 Outpatient EDWARD LANZA [id number] Sandra [facility] 2024-03-16 11:06:00 2024-03-16 14:17:00 Emergency X VERENICE DANIELS [facility] ERT [id number] [facility] 2024-03-16 11:06:00 2024-03-16 14:17:00 Emergency Verenice Daniels [facility] [id number] [id number] [id number] [facility] 2023-10-28 15:37:00 2023-10-28 18:08:00 Emergency KIRIT FELIX [facility] ERT [id number] [facility] 2023-10-28 15:37:00 2023-10-28 18:08:00 Emergency Kirit Recinos [facility] [id number] [id number] 4.2.7.2.686 [id number] [facility] 2023-01-02 09:12:00 2023-01-02 10:46:00 Emergency X NURIA JLUESRA [facility] ERT [id number] [facility] 2023-01-02 09:12:00 2023-01-02 10:46:00 Emergency Sandy Jules [facility] [id number] [id number] [id number] [id number] [facility] 2022-12-06 22:35:00 2022-12-07 01:14:00 Emergency Anand Jarrell [facility] [id number] [id number] [id number] [id number] [facility] 2022-12-06 22:35:00 2022-12-07 01:14:00 Emergency X ANAND JARRELL [facility] ERT [id number] [facility] 2022-10-05 09:57:21 2022-10-05 09:57:21 Outpatient SFA SFA [id number] Sergey Lindsay Results Test Description Test Time Test Comments Results Result Co mments Source [facility] [id number] 17:27:17EXAM: CT HEAD WO CONTRAST HISTORY: 58 [...] clear. Thecalvarium and central skull base are unremarkable.[facility] WITH [id number] 17:03:22* Test Item Value Reference Range Interpretation [...] 33.3 g/dL 31.6-35.1 RDW-SD (test code = 09636-3) 37.2 fL 39.0-49.9 L RDW-CV (test code = 788-0) 12.2 % 12.0-15.5 PLT (test code = 777-3) 239 166-358 MPV (test code = 45786-9) 10.7 fL 9.5-12.9 NRBC/100 WBC (test code = 4603522961) 0.0 0.0-10.0 NRBC x10^3 (test code = 7599486404) See_Comment [Automated messa ge] The system which generated this result transmitted reference range: 10*3/?L. The reference range was not used to interpret this result as normal/abnormal. GRAN MAT (NEUT) % (test code = 770-8) 78.7 % IMM GRAN % (test code = 3829086350) 1.40 % LYMPH % (test code = 736-9) 14.7 % MONO % (test code = 5905-5) 4.1 % EOS % (test code = 713-8) 0.6 % BASO % (test code = 706-2) 0.5 % GRAN MAT x10^3(ANC) (test code = 3124232965) 7.91 10*3/uL 1.88-7.09 H IMM GRAN x10^3 (test code = 6321425146) 0.14 10*3/uL 0.00-0.06 H LYMPH x10^3 (test code = 731-0) 1.48 10*3/uL 1.32-3.29 MONO x10^3 (test code = 742-7) 0.41 10*3/uL 0.33-0.92 EOS x10^3 (test code = 711-2) 0.06 10*3/uL 0.03-0.39 BASO x10^3 (test code = 704-7) 0.05 10*3/uL 0.01-0.07 Lab Interpretation (test code = 42932-4) Abnormal [facility]. METABOLIC PANEL ([id number])2023-01-02 14:51:33* Test Item Value Reference Range Interpretation Comme nts NA (test code = 8131142181) 140 mmol/L 135-145 K (test code = 5302596412) 3.9 mmol/L 3.5-5.0 CL (test code = 6607971376) 105 mmol/L 98-108 CO2 TOTAL (test code = 3441911621) 23 mmol/L 23-31 AGAP (test code = 3678685705) 12 2-16 BUN (test code = 8591676868) 11 mg/dL 7-23 GLUCOSE (test code = 6417234576) 170 mg/dL 70-110 H CREATININE (test code = 9351390635) 0.82 mg/dL 0.50-1.04 TOTAL BILI (test code = 4506764208) 0.8 mg/dL 0.1-1.1 CALCIUM (test code = 0432201021) 8.9 mg/dL 8.6-10.6 T PROTEIN (test code = 1112569212) 7.7 g/dL 6.3-8.2 ALBUMIN (test code = 5068621668) 4.2 g/dL 3.5-5.0 ALK PHOS (test code = 0202474000) 81 U/L 34-122 ALTv (test code = 1742-6) 37 U/L 5-35 H AST(SGOT) (test code = 0366662969) 24 U/L 13-40 eGFR (test code = 8132751729) 72.1 mL/min/1.73m2 MAGDALENA (test code = MAGDALENA) [...] imaging tests). Lab Interpretation (test code = 73562-3) Abnormal [facility] WITH [id number] 14:38:57* Test Item Value Reference Range Interpretation Comme nts WBC (test code = 6690-2) 11.59 See_Comment H [Automated [employer]] The system which generated this result transmitted reference range: 4.30 - 11.10 10*3/?L. The reference range was not used to interpret this result as normal/abnormal. RBC (test code = 789-8) 4.81 See_Comment [Automated [employer]] The system which generated this result transmitted [...] 33.6 g/dL 31.6-35.1 RDW-SD (test code = 99302-3) 38.6 fL 39.0-49.9 L RDW-CV (test code = 788-0) 12.3 % 12.0-15.5 PLT (test code = 777-3) 188 See_Comment [Automated [employer]] The system which generated this result transmitted reference range: 166 - 358 10*3/?L. The reference range was not used to interpret this result as normal/abnormal. MPV (test code = 48416-6) 10.3 fL 9.5-12.9 NRBC/100 WBC (test code = 4272479596) 0.0 See_Comment [Automated me ssage] The system which generated this result transmitted reference range: 0.0 - 10.0 /100 WBCs. The reference range was not used to interpret this result as normal/abnormal. NRBC x10^3 (test code = 4259941104) See_Comment [Automated messa ge] The system which generated this result transmitted reference range: 10*3/?L. The reference range was not used to interpret this result as normal/abnormal. GRAN MAT (NEUT) % (test code = 770-8) 74.4 % IMM GRAN % (test code = 2808451759) 0.60 % LYMPH % (test code = 736-9) 16.0 % MONO % (test code = 5905-5) 6.8 % EOS % (test code = 713-8) 1.6 % BASO % (test code = 706-2) 0.6 % GRAN MAT x10^3(ANC) (test code = 8563144249) 8.63 10*3/uL 1.88-7.09 H IMM GRAN x10^3 (test code = 1538308730) 0.07 10*3/uL 0.00-0.06 H LYMPH x10^3 (test code = 731-0) 1.85 10*3/uL 1.32-3.29 MONO x10^3 (test code = 742-7) 0.79 10*3/uL 0.33-0.92 EOS x10^3 (test code = 711-2) 0.18 10*3/uL 0.03-0.39 BASO x10^3 (test code = 704-7) 0.07 10*3/uL 0.01-0.07 Lab Interpretation (test code = 76932-9) Abnormal [facility] Notes Date/Time Note Provider Source 2024-05-29 08:07:18 Patient here for a lower abdominal pain that radiates to her back. Patient states that she feels like she has a UTI. Started approximately 1 week ago. David Hinojosa RN [facility] [employer] 2024-05-29 07:51:00 [facility] Emergency Department Note Patient Name: Gena Montgomery Date of : 1965 58 year old female Treatment Room: Room/bed info not found Primary Care Physician: Oneida Weir [facility] Patient Escorted by: Family [5] Mode [...] taking these medications which have NOT CHANGED [id number]-[id number] AFF 50-325-40 MG TABLET Take 1 tablet [...] signed by: Sandy Jules DO 05/29/24 0855 T [facility] 2024-04-19 10:01:47 Chief Complaint Patient presents with New Patient Establish Care Had surgery on both knees. Right knee pain has bone on bone. Has been having headaches nightly. Cecilia Almonte LVN [facility] 2024-03-16 14:16:39 Patient given discharge instructions on complicated headache syndrome. Given prescriptions X 3 for esgic, reglan and naproxen. Pt advised to follow up with Dr. Patrick. Pt left ER ambulatory, no signs of distress. Luz Maria Hawley RN [facility] 2024-03-16 11:03:41 Patient arrived ambulatory with and daughter c/o of a severe headache that started this morning. The vomiting started this morning after the headache started. Patient and patient's family states she has chronic headaches and typically takes naproxen. Did not attempt any over the counter medication for the headache. Ruth Ann Mckeon RN [facility] 2023-10-28 18:07:34 Pt given printed and verbal [...] with steady gait, in no apparent distress. AR INSTRUCTOR Jeanette Lee RN [facility] 2023-10-28 15:36:36 Patient reports n/v and headache that started at at noon. 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 AR INSTRUCTOR Suresh Ng RN [facility]
[2025-03-18] MEDS ORDERED: IBUPROFEN 400 MG TAB ONE (22:14)
[2025-03-18] MEDS ORDERED: IBUPROFEN 200 MG TAB PO ONE (22:14)
[2025-03-18 23:05] LABS: SARS-CoV-2 Antigen Rapid Res Negative (Negative)
--- NOTE | 2025-03-18 23:12 | EDPHYS ---
Physician Documentation [facility] Name: Gertrudis Guevara Age: 59 yrs Sex: Female : 1965 Arrival Date: 03/18/2025 Time: 21:17 Bed 10 Private MD: ED Physician Mario Lewis HPI: 03/18 23:10 This 59 yrs old Female presents to ER via Ambulatory with complaints of Sore Throat. kb 23:10 Patient is a 59-year-old female who presents for sore throat and chills that started kb this morning. Denies measured fever, cough, congestion, vomiting. Historical: - Allergies: 21:50 No Known Allergies; dd2 - PMHx: 21:50 diabetes mellitus; Hypercholesterolemia; dd2 - PSHx: 21:50 Cholecystectomy; knee; Total abdominal hysterectomy; dd2 - Immunization history:: Adult Immunizations up to date. - Infectious Disease History:: Denies. - Social history:: Smoking status: Patient denies any tobacco usage or history of. ROS: 23:09 Constitutional: As per HPI kb Exam: 23:09 Constitutional: This is a well developed, well nourished patient who is awake, alert, kb and in no acute distress. Head/Face: Normocephalic, atraumatic. Cardiovascular: Regular rate Respiratory: Respirations even and unlabored. No increased work of breathing. Talking in full sentences Skin: Warm, dry with normal turgor. Normal color. MS/ Extremity: Pulses equal, no cyanosis. Neurovascular intact. Full, normal range of motion. Neuro: Awake and alert, GCS 15, oriented to person, place, time, and situation. 23:09 ENT: Posterior pharynx: Airway: normal, Tonsils: bilaterally enlarged, with erythema, Uvula: normal, midline, swelling, that is mild, erythema, that is moderate, Vital Signs: 21:49 BP 137 / 72; Pulse 75; Resp 16; Temp 98.5(O); Pulse Ox 98% on R/A; Weight 60.78 kg; dd2 Height 5 ft. 2 in. ; 23:19 BP 131 / 73; Pulse 77; Resp 16; Temp 98.3; Pulse Ox 99% on R/A; dd2 21:49 Body Mass Index 24.51 (60.78 kg, 157.48 cm) dd2 Wilton Coma Score: 21:52 Eye Response: spontaneous(4). Motor Response: obeys commands(6). Verbal Response: dd2 oriented(5). Total: 15. MDM: 21:24 Medical Screening Exam initiated kb 23:10 Differential diagnosis: Strep, COVID, NURSE CONSULTANT. Data reviewed: vital signs, nurses notes. I kb considered the following discharge prescriptions or medication management in the emergency department I discussed and recommended Over The Counter medications, Will prescribe antibiotics for strep. Counseling: I had a detailed discussion with the patient and/or guardian regarding the historical points, exam findings, and any diagnostic results supporting the discharge/admit diagnosis, lab results, the need for outpatient follow up, a family practitioner, to return to the emergency department if symptoms worsen or persist or if there are any questions or concerns that arise at home. 03/18 21:56 Order name: Group A Streptococcus Rapid; Complete Time: 23:09 kb 03/18 21:56 Order name: SARS RAPID; Complete Time: 23:09 kb Administered Medications: 22:17 Drug: Ibuprofen PO 600 mg PO once Route: PO; dd2 22:47 Follow up: Response: No adverse reaction dd2 23:19 Drug: Amoxicillin-Clavulanate PO 875 mg PO once Route: PO; dd2 23:21 Follow up: Response: Medication administered at discharge. dd2 Disposition: 03/19 18:57 Co-signature as Attending Physician, Mario Lewis MD I agree with the assessment sp4 and plan of care. I reviewed the patient's care provided by the Advanced Practice Provider and agree with the diagnosis and treatment plan. Disposition Summary: 03/18/25 23:11 Discharge Ordered Notes: Location: Home kb Condition: Stable kb Diagnosis - Streptococcal pharyngitis kb Followup: kb - With: Emergency Department - When: As needed - Reason: Worsening of condition Followup: kb - With: Private Physician - When: 2 - 3 days - Reason: Recheck today's complaints, Continuance of care, Re-evaluation by your physician Discharge Instructions: - Discharge Summary Sheet kb - Strep Throat, Adult, [id number] kb Forms: - Work release form kb - Medication Reconciliation Form kb - Antibiotic Education kb - Prescription Opioid Use kb - Patient Portal Instructions kb - Leadership Thank You Letter kb Prescriptions: - Augmentin 875-125 mg Oral Tablet - take 1 tablet ORAL route every 12 hours for 10 days; 20 tablet; Refills: 0, kb Product Selection Permitted Signatures: Dispatcher [employer] EDYakelin Joseph FNP-C FNP-Ckb Potepalov, Sergey, MD MD sp4 ROGER DOAN RN RN dd2 Corrections: (The following items were deleted from the chart) 03/18 21:56 21:56 Group A Streptococcus Rapid Sc+I.LAB.BRZ ordered. EDMS EDMS 21:56 21:56 SARS-COV-2 Antigen Rapid+I.LAB.BRZ ordered. EDMS EDMS
--- NOTE | 2025-03-18 23:12 | ER ---
Nurse's Notes [facility] Name: Gertrudis Guevara Age: 59 yrs Sex: Female : 1965 Arrival Date: 03/18/2025 Time: 21:17 Bed 10 Private MD: Diagnosis: Streptococcal pharyngitis Presentation: 03/18 21:49 Chief complaint: Patient states: sore throat since this morning. Coronavirus screen: At dd2 this time, the client does not indicate any symptoms associated with coronavirus-19. Ebola Screen: No symptoms or risks identified at this time. Initial Sepsis Screen: Does the patient meet any 2 criteria? No. Patient's initial sepsis screen is negative. Does the patient have a suspected source of infection? No. Patient's initial sepsis screen is negative. Risk Assessment: Do you want to hurt yourself or someone else? Patient reports no desire to harm self or others. Onset of symptoms was March 18, 2025. 21:49 Method Of Arrival: Ambulatory dd2 21:49 Acuity: ONOFRE 4 dd2 Triage Assessment: 21:50 General: Appears in no apparent distress. uncomfortable, Behavior is calm, cooperative, dd2 appropriate for age. Pain: Complains of pain in throat Pain currently is 7 out of 10 on a pain scale. EENT: Throat is reddened Reports difficulty swallowing pain in throat. Neuro: No deficits noted. Cardiovascular: No deficits noted. Respiratory: No deficits noted. Airway is patent Respiratory effort is even, unlabored, Respiratory pattern is regular, symmetrical. GI: No deficits noted. No signs and/or symptoms were reported involving the gastrointestinal system. : No deficits noted. No signs and/or symptoms were reported regarding the genitourinary system. Derm: No deficits noted. No signs and/or symptoms reported regarding the dermatologic system. Musculoskeletal: No deficits noted. No signs and/or symptoms reported regarding the musculoskeletal system. Circulation, motion, and sensation intact. Range of motion: intact in all extremities. Historical: - Allergies: 21:50 No Known Allergies; dd2 - PMHx: 21:50 diabetes mellitus; Hypercholesterolemia; dd2 - PSHx: 21:50 Cholecystectomy; knee; Total abdominal hysterectomy; dd2 - Immunization history:: Adult Immunizations up to date. - Infectious Disease History:: Denies. - Social history:: Smoking status: Patient denies any tobacco usage or history of. Screenin:52 [facility] ED Fall Risk Assessment (Adult) History of falling in the last 3 months, dd2 including since admission No falls in past 3 months (0 pts) Confusion or Disorientation No (0 pts) Intoxicated or Sedated No (0 pts) Impaired Gait No (0 pts) Mobility Assist Device Used No (0 pt) Altered Elimination No (0 pt) Score/Fall Risk Level 0 - 2 = Low Risk Oriented to surroundings, Maintained a safe environment, Educated pt \T\ family on fall prevention, incl call for assistance when getting out of bed, Assessed \T\ reinforced patient's understanding of fall precautions, Hourly rounding (assess needs \T\ fall precautionary measures) done. Abuse screen: Denies threats or abuse. Denies injuries from another. Nutritional screening: No deficits noted. Tuberculosis screening: No symptoms or risk factors identified. Assessment: 21:52 Reassessment: see triage assessment for full assessment. dd2 Vital Signs: 21:49 BP 137 / 72; Pulse 75; Resp 16; Temp 98.5(O); Pulse Ox 98% on R/A; Weight 60.78 kg; dd2 Height 5 ft. 2 in. ; 23:19 BP 131 / 73; Pulse 77; Resp 16; Temp 98.3; Pulse Ox 99% on R/A; dd2 21:49 Body Mass Index 24.51 (60.78 kg, 157.48 cm) dd2 Jigar Coma Score: 21:52 Eye Response: spontaneous(4). Motor Response: obeys commands(6). Verbal Response: dd2 oriented(5). Total: 15. ED Course: 21:19 Patient arrived in ED. [id number] 21:24 Yakelin Leal FNP-C [facility]. kb 21:24 Mario Lewis MD is Attending Physician. kb 21:48 ROGER DOAN, EDU is Primary Nurse. dd2 21:50 Triage completed. dd2 21:50 Arm band placed on right wrist. dd2 21:52 Patient has correct armband on for positive identification. Bed in low position. Call dd2 light in reach. Client placed on continuous cardiac and pulse oximetry monitoring. NIBP monitoring applied. Door closed. Noise minimized. Pillow given. Verbal reassurance given. 21:52 No provider procedures requiring assistance completed. Patient did not have IV access dd2 during this emergency room visit. Patient maintains SpO2 saturation greater than 95% on room air. 23:19 Provided Education on: D/C EDUCATION, MEDICATION. dd2 Administered Medications: 22:17 Drug: Ibuprofen PO 600 mg PO once Route: PO; dd2 22:47 Follow up: Response: No adverse reaction dd2 23:19 Drug: Amoxicillin-Clavulanate PO 875 mg PO once Route: PO; dd2 23:21 Follow up: Response: Medication administered at discharge. dd2 Medication: 21:52 VIS not applicable for this client. dd2 Outcome: 23:11 Discharge ordered by MD. pinon 23:19 Discharged to home ambulatory, dd2 23:19 Condition: stable 23:19 Discharge instructions given to patient, Instructed on discharge instructions, follow up and referral plans. medication usage, Demonstrated understanding of instructions, follow-up care, medications, Prescriptions given X 1, 23:21 Patient left the ED. dd2 Signatures: Yakelin Leal, AZALIAC CATHLEEN-Mary Kay [id number] ROGER DOAN, RN RN dd2
[2025-03-18] MEDS ORDERED: AMOX/K CLAV 875 MG TAB ONE (23:15)
[2025-03-18 23:31] VITALS: BP 131/73; TEMP 98.3; O2SAT 99
== END 2025-03-18 23:21 | disposition home or self-care (01) ==
LOC: ER 21:17
DX: J02.0 Streptococcal pharyngitis (principal); Z11.52 Encounter for screening for COVID-19
CPT/HCPCS: 36415; 87426; 99284